=== PATIENT | male | born 1975 | race Caucasian/White ===

== ENCOUNTER 2019-04-03 06:18 | Emergency (ER) | payer MEDICARE, OTHER ==
[~2019-04-03] VITALS: Ht 185.4 cm; Wt 62.4 kg
[~2019-04-03 06:18] MED LIST: PALI6TAB PO
[2019-04-03 06:44] VITALS: BP 131/68
[2019-04-03] MEDS ORDERED: PALI6TAB PO (06:49)
[2019-04-03] MEDS ORDERED: PALIPERIDONE 3 MG TAB.ER.24 PO ONE (06:50)
== END 2019-04-03 07:04 | disposition home or self-care (01) ==
LOC: ER 06:18
DX: F20.9 Schizophrenia, unspecified (principal); F29 Unspecified psychosis not due to a substance or known physiological condition; F17.200 Nicotine dependence, unspecified, uncomplicated; F10.99 Alcohol use, unspecified with unspecified alcohol-induced disorder; Z59.0 Homelessness; Z79.899 Other long term (current) drug therapy; Y90.9 Presence of alcohol in blood, level not specified
CPT/HCPCS: 99284